=== PATIENT | female | born 1980 | race Two or more races ===

== ENCOUNTER 2016-09-30 13:22 | Emergency (ER) | payer OTHER ==
[~2016-09-30] VITALS: Ht 160 cm; Wt 124.1 kg
--- NOTE | 2016-09-30 13:34 | ED.REPORT ---
HPI-NVD Date of Service Sep 30, 2016 ED Provider: History of Present Illness: vomiting for 3 weeks. primary care in [place]. Also has hx of gastric bypass 08/08/2016, in [place] at [facility]. returning to [place] in November. IUD placed last January, also with vaginal bleeding for 2 days. Was told she wound not bleed for 3 years. has a hx of migraines. came [place]. [place] 09[place]16/2016 phone number is [phone]. 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 also diabetic. taking metformin took tylenol for the pain went to urgent care on 09/21 for for left sided pain. given a medication that started with a "n" . it worked but now the pain is in a different location Called [facility] given #15 vicodin. Nursing Notes Nursing Notes Reviewed: Yes Allergies: Coded Allergies: No Known Allergies (Unverified Allergy, Unknown, 03/21/14) General Time Seen by MD: 13:34 Chief Complaint Vomiting, Diarrhea Hx Obtained From: Patient Onset Occurred: More than a week ago... (3 weeks) Vomiting: Vomiting clear Past Medical History Past Medical History Notes: hx of migraines, the pain is from vaginal bleeding and vomiting per her report. using nausea meds no help Past Medical History Reports: Diabetes mellitus (states it is "going away" 09/30/2016) Past Surgical History gastric bypass 08/2016 Smoking History Never Smoker Social History Alcohol Use: Denies alcohol use Drug Use: Denies drug use Other Social History: Occupation lives in [place] but staying with Mom at present 09/30/2016 Ambulatory Status Independent Review of Systems Review of Systems Note: patient looks well Basic Review of Systems Eyes: Vision NL, No discharge Respiratory: No shortness of breath, No cough, No wheeze Cardiovascular: No chest pain, No dyspnea on exertion, No orthopnea, No parox noct dyspnea, No palpitations : No dysuria, No frequency Musculoskeletal: No extremity swelling, No extremity pain, Full range of motion , Joints NL Hematologic: No bleeding, No bruising Endocrine: No cold intolerance, No heat intolerance, No weight gain, No weight loss Allergy / Immune: No allergy Psychiatric: Normal thought content Physical Exam Initial Vital Signs Vital Signs (First) Date Time Temp Pulse Resp B/P Pulse Ox O2 Delivery O2 Flow Rate FiO2 09/30/16 13:36 36.7 88 14 134/68 99 09/30/16 17:52 Room Air Initial VS: Reviewed, Vital signs normal Head / Eyes: Atraumatic, Normocephalic, PERRL ENT: Mucous membranes moist, Conjunctiva normal, No scleral icterus Neck: Supple, Non-tender, Full range of motion Respiratory: Breath sounds normal, Clear to auscultation, No respiratory distress Cardiovascular: Regular rate & rhythm, Heart sounds normal, Intact distal pulses Back: No CVA tenderness Lymphatic: No lymphadenopathy Extremities: Vascular intact, Neuro intact, No swelling, No tenderness Skin: Warm, Dry, No cyanosis Neurologic: Alert, Oriented, Nonfocal Psychiatric: Mood/affect normal, Behavior normal, Normal thought content General/Constitutional: Awake, Alert, No acute distress, Well appearing, Well developed, Well hydrated, Well nourished, Cooperative, Not toxic appearing Abdomen: Atraumatic, Soft, Non-tender Bowel Sounds / Distention: Positive: Bowel sounds hypoactive ENT: Atraumatic, Airway patent, Mucous membranes moist, Pharynx NL Respiratory / Chest: Atraumatic, Breath sounds NL, Breath sounds = bilat, No respiratory distress, No rales, No rhonchi, No wheezing, No retractions, No stridor, No chest tenderness, No chest wall deformity Cardiovascular: Heart rate NL, Regular rhythm, Heart sounds NL, No gallop Back: Atraumatic, Inspection NL, Full range of motion, Painless range of motion Interpretation & Diagnostics Lab Results Interpretation Result Diagram: 09/30/16 1511 09/30/16 1511 Test 09/30/16 14:54 09/30/16 15:11 Urine Color Bloody (YELLOW) Urine Appearance Turbid (CLEAR,HAZY) Urine pH 5.5 (5.0-8.0) Urine Specific [place] 1.025 (1.003-1.035) Urine Protein 30mg/dL (NEG,TRACE) Urine Glucose (UA) Negativemg/dL (NEGATIVE) Urine Ketones Tracemg/dL (NEGATIVE) Urine Occult Blood Large (NEGATIVE) Urine Nitrite Negative (NEGATIVE) Urine Bilirubin Negative (NEGATIVE) Urine Urobilinogen Normalmg/dL (NORMAL) Urine Leukocyte Esterase Negative (NEGATIVE) Urine RBC Packed/hpf (0-2) Urine WBC 6-10/hpf (0-5) Urine Epithelial Cells Occasional/hpf (NONE-MOD) Urine Crystals None seen (NONE SEEN) Urine Bacteria None/hpf (NONE-FEW) Urine Hyaline Casts None/lpf (NONE) Urine Granular Casts None seen (NONE SEEN) Urine Waxy Casts None seen (NONE SEEN) Urine Red Blood Cell Casts None seen (NONE SEEN) Urine White Blood Cell Casts None seen (NONE SEEN) Urine Mucus None seen (None Seen) Urine Trichomonas None seen (NONE SEEN) Urine Yeast None (NONE SEEN) Urinalysis Comment None Urine Culture Reflexed Indicated White Blood Count 6.5th/mm3 (3.8-10.1) Red Blood Count 4.84mil/mm3 (3.90-5.20) Hemoglobin 12.7g/dL (12.0-15.6) Hematocrit 39.4% (35.0-46.0) Mean Corpuscular Volume 81.4fL (81-100) Mean Corpuscular Hemoglobin 26.2pg (27.0-35.0) Mean Corpuscular Hemoglobin Concent 32.2% (32.0-37.0) Red Cell Distribution Width 14.8% (12.3-15.4) Platelet Count 289bil/L (150-400) Neutrophils (%) (Auto) 52.6% (40-74) Lymphocytes (%) (Auto) 27.3% (14-46) Monocytes (%) (Auto) 11.8% (4-12) Eosinophils (%) (Auto) 7.2% (0-5) Basophils (%) (Auto) 0.9% (0-3) Sodium Level 137mEq/L (134-144) Potassium Level 4.2mEq/L (3.5-5.2) Chloride Level 100mEq/L (97-108) Carbon Dioxide Level 21mmol/L (18-29) Blood Urea Nitrogen 5mg/dL (6-20) Creatinine 0.40mg/dL (0.57-1.00) Estimat Glomerular Filtration Rate 257mL/min (>59) Glucose Level 134mg/dL (60-99) Lactic Acid Level 1.4mmol/L (0.4-2.0) Calcium Level 9.9mg/dL (8.5-10.1) Total Bilirubin 0.2mg/dL (0.0-1.2) Aspartate Amino Transf (AST/SGOT) 32U/L (0-50) Alanine Aminotransferase (ALT/SGPT) 35U/L (0-32) Alkaline Phosphatase 87U/L (25-150) Total Protein 8.5g/dL (6.4-8.4) Albumin 4.4g/dL (3.4-5.0) Lab Results Interpretation: u dip is negative for ketones. u preg is negative, u tox is positive for opiates X-Ray Abdominal Interpretation OMPARISON: None. FINDINGS: Surgical changes and devices: Cholecystectomy clips noted. An IUD is noted. Surgical sutures are present in the epigastrium. Chest: Lungs are clear. Heart size is normal. No pleural effusions. No pneumoperitoneum. Abdomen: Bowel gas pattern is nonobstructive. There is abundant colonic gas and paucity of small bowel gas. No suspicious calcifications. Visualized solid organ contours appear normal. Bones: No suspicious bony lesions. IMPRESSION: Non-specific non-obstructive bowel gas pattern Discharge & Departure Impression: Primary Impression: Vomiting Additional Impression: Vaginal bleeding Disposition: Home Patient Instructions: Acute Nausea and Vomiting (ED) Additional Instructions: The vomiting has been ongoing for 3 weeks. You were able to hold down water in the ER. Use reglan 10 mg 3 times a day to help with vomiting. Your urine does not show any sign of infection. It is not uncommon to have a "honey dudley" phase for the first 6 months of the IUD. It is in the correct location. After that you may have occasional bleeding or ongoing bleeding. The range of normal has a wide range. Please follow with primary care on return to [place]. Referrals: OTHER,PHYSICIAN (PCP) (Family) EDSupervising Provider for APC: Moisés Denny MD, Sue ARNP Sep 30, 2016 13:34
[2016-09-30 13:36] VITALS: BP 134/68; PULSE 88; RESP 14; O2SAT 99
[2016-09-30] MEDS ORDERED: MetoCLOpramide 5 mg/mL 2 mL Inj IVPUSH PRN (13:55)
[2016-09-30] MEDS ORDERED: 0.9% Sodium Chloride 1,000 ML IV ONE (13:55)
[2016-09-30 14:54] VITALS: BP_SYST 137; BP_SYST 145; BP_DIAS 57; BP_DIAS 62
--- NOTE | 2016-09-30 14:54 | DRSVH ---
PROCEDURE: X-RAY ACUTE ABDOMINAL SERIES ([id number]) INDICATIONS: vomiting, history of gastric bypass 08/08/2016 TECHNIQUE: One view chest and two views of the abdomen were acquired. COMPARISON: None. FINDINGS: Surgical changes and devices: Cholecystectomy clips noted. An IUD is noted. Surgical sutures are pre sent in the epigastrium. Chest: Lungs are clear. Heart size is normal. No pleural effusions. No pneumoperitoneum. Abdomen: Bowel gas pattern is nonobstructive. There is abundant colonic gas and paucity of small bow el gas. No suspicious calcifications. Visualized solid organ contours appear normal. Bones: No suspicious bony lesions. IMPRESSION: Non-specific non-obstructive bowel gas pattern Dictated by: Jordana Cook M.D. on 09/30/2016 at 14:53 Approved by: Jordana Cook M.D. on 09/30/2016 at 14:54
[2016-09-30 15:29] LABS: BASOPHILS % (AUTO) 0.9 % (0-3); EOSINOPHILS % (AUTO) 7.2 % (0-5); MONOCYTES % (AUTO) 11.8 % (4-12); Mean Corpuscular Hemoglobin 26.2 pg (27.0-35.0); Mean Corpuscular Volume 81.4 fL (81-100); NEUTROPHILS % (AUTO) 52.6 % (40-74); Platelet Count 289 bil/L (150-400)
[2016-09-30 16:36] LABS: APPEARANCE,URINE TURBID (CLEAR,HAZY); COLOR,URINE BLOODY (YELLOW); PH,URINE 5.5 (5.0-8.0)
[2016-09-30 16:37] LABS: OCCULT BLOOD,URINE LARGE (NEGATIVE); UROBILINOGEN,URINE NORMAL (NORMAL)
--- NOTE | 2016-09-30 16:50 | DRSVH ---
PROCEDURE: CT ABDOMEN AND PELVIS WITH CONTRAST ([id number]) INDICATIONS: Recent surgery. Vomiting TECHNIQUE: After the administration of intravenous contrast, 5 mm thick sections acquired from the diaphragm to the symphysis. 5 mm coronal and sagittal reformats were acquired. For radiation dose reduction, the following was used: automated exposure control, adjustment of mA and/or kV according to patient alexa pham. COMPARISON: [facility], CT, ABD/PELVIS W/CON (PNL), 03/21/2014, 14:54. FINDINGS: Image quality: Excellent. ABDOMEN: Lung bases: Lung bases are clear. Heart size is normal. Solid organs: Diffuse hepatic fatty infiltration. Liver and spleen are normal in size and enhancemen t. Gallbladder is surgically absent. Biliary system is non dilated. Pancreas enhances normally. N o adrenal nodules. Kidneys demonstrate normal size and enhancement, without hydronephrosis. Peritoneum and bowel: There is gastric bypass surgery. Bowel loops demonstrate normal wall thickness and caliber. No free fluid or air. Nodes and vessels: No retroperitoneal or mesenteric adenopathy by size criteria. Aorta and inferior vena cava are normal in size. Miscellaneous: There is diastases of the rectus sheath. A small ventral hernia is noted containing f at. PELVIS: Genitourinary: Bladder wall thickness is normal. There is an IUD. Uterus and ovaries are unremarkab le. No pathological free fluid. Miscellaneous: No inguinal hernias or adenopathy. Bones: No suspicious bony lesions. No vertebral body compression fractures. IMPRESSION: 1. Post surgical changes related to gastric bypass. No CT findings to explain vomiting. 2. Hepatic steatosis. 3. Small ventral hernia containing fat. Dictated by: Jordana Cook M.D. on 09/30/2016 at 16:38 Approved by: Jordana Cook M.D. on 09/30/2016 at 16:50
[2016-09-30] MEDS ORDERED: HYDROmorphone 0.5 mg/0.5 mL iSecure Syringe IVPUSH ONE (17:10)
[2016-09-30 17:52] VITALS: BP 120/86; PULSE 84; RESP 16; O2SAT 99
== END 2016-09-30 17:53 | disposition home or self-care (01) ==
LOC: SED 13:22
DX: R11.10 Vomiting, unspecified (principal); N93.9 Abnormal uterine and vaginal bleeding, unspecified; E11.9 Type 2 diabetes mellitus without complications; Z98.84 Bariatric surgery status; Z97.5 Presence of (intrauterine) contraceptive device; Z86.69 Personal history of other diseases of the nervous system and sense organs; Z79.84 Long term (current) use of oral hypoglycemic drugs
CPT/HCPCS: 36415; 74022; 74177; 80053; 81000; 81025; 83605; 85025; 87086; 87088; 96361; 96374; 96375; 99285; J1170; J2765; J7030; Q9967